=== PATIENT | female | born 1985 | race Caucasian/White ===

== ENCOUNTER → 2017-12-01 19:44 | Outpatient (CLI) | payer OTHER, SELFPAY ==
[2017-12-05 15:45] LABS: HPV APTIMA, High Risk Negative (Negative)
== END ==
PROVIDERS: Visit Provider Nurse Practitioner Women's Health
DX: Z12.4 Encounter for screening for malignant neoplasm of cervix (principal)
CPT/HCPCS: 88175; G0145

== ENCOUNTER → 2017-12-02 07:35 | Outpatient (CLI) | payer OTHER, SELFPAY ==
[2017-12-02 09:36] LABS: Cholesterol 151 mg/dL (200); Glucose 72 mg/dL (74-106); High Density Lipoprotein 57 mg/dL; Triglycerides 85 mg/dL; Very Low Density Lipoprotein 17 mg/dL (5-40)
== END ==
PROVIDERS: Visit Provider Nurse Practitioner Women's Health
DX: Z00.00 Encounter for general adult medical examination without abnormal findings (principal)
CPT/HCPCS: 36415; 80061; 82947

== ENCOUNTER 2018-10-27 13:24 | Emergency (ER) | payer OTHER, SELFPAY ==
[2018-10-27 12:53] VITALS: BMI 22.4
[2018-10-27 13:25] VITALS: BP 140/85; PULSE 117; RESP 16; TEMP 36.7; O2SAT 100; BMI 22.4
[2018-10-27 13:51] LABS: Absolute Neutrophil Count 4.6 X10^3/uL (2.0-7.7); Basophil# 0.01 X10^3/uL; Basophil% 0.2 % (0-1); Eosinophil# 0.02 X10^3/uL; Eosinophils% 0.3 % (0-5); Hematocrit 33.1 % (37-47); Hemoglobin 10.2 g/dl (12.0-15.0); Lymphocyte % 19.4 % (19-41); Mean Corp Hgb Conc 30.8 g/gl (32-36); Mean Corpuscular Hgb 22.7 pg (27.0-32.0); Mean Corpuscular Volume 73.7 fL (81-99); Mean Platelet Vol. 10.6 fl (6.2-12.0); Monocyte# 0.34 X10^3/uL; Monocyte% 5.5 % (0-10); Neutrophil # 4.63 X10^3/uL (2.7-7.7); Neutrophil % 74.6 % (47-70); Platelet Count 218 K/mm3 (150-450); RBC Distribution Width CV 15.7 % (11.6-14.6); RBC Distribution Width SD 42.1 fl (35.1-43.9); Red Blood Count 4.49 M/mm3 (4.2-5.4); White Blood Count 6.2 K/mm3 (4.4-11.0)
[2018-10-27 13:52] LABS: Differential Indicated SCAN CRITERIA MET; POSITIVE COUNT NO; POSITIVE DIFFERENTIAL NO; POSITIVE MORPHOLOGY YES
[2018-10-27 13:53] LABS: Mucous, Urine 0 SEEN /hpf (<or=2+); Red Blood Cells-Urine 0 SEEN /hpf (0-5)
[2018-10-27 13:54] LABS: Color, Urine Yellow (Yellow); Glucose, Dipstick Normal (Normal); Ketone-Dipstick Negative (Negative); Leukocyte Esterase-Dipstick Negative /ul (Negative); Nitrite-Dipstick Negative (Negative); Occult Blood-Urine Negative /ul (Negative); Protein-Dipstick Negative (Negative); Specific Gravity, Urine 1.005 (1.002-1.030); Urine Bilirubin Dipstick Negative (Negative); Urine Clarity Clear (Clear); Urine Urobilinogen Normal (Normal); Urine pH 6.5 (5.0 - 8.0)
[2018-10-27 14:00] LABS: Bacteria RARE /hpf (None Seen); Squamous Epithelial Cells - UA 0-5 SEEN /hpf (5-10); White Blood Cells 0-5 SEEN /hpf (0-5)
[2018-10-27 14:03] LABS: Anion Gap 10 (5-15); BUN 9 mg/dL (7-18); BUN/Creat Ratio 11.7 RATIO (10-20); Calcium,Total 8.7 mg/dL (8.5-10.1); Chloride 107 mmol/L (98-107); Creatinine, Serum 0.77 mg/dL (0.55-1.02); EST Glomerular Filtration Rate 93 mL/min (>60); Est Glom Filt Rate - Afr Amer 112 mL/min (>60); Estimated Creatinine Clearance 95.26 ml/min; Glucose 81 mg/dL (74-106); Potassium 3.5 mmol/L (3.5-5.1); Sodium Level 139 mmol/L (136-145)
[2018-10-27 14:33] LABS: Partial Thromboplast Time 28.1 Seconds (24.1-36.2); Prothrombin Time (Protime)PT. 13.3 SECONDS (11.7-14.9)
[2018-10-27 14:34] LABS: AST(SGOT) 16 U/L (15-37); Alanine Aminotransfer ALT/SGPT 12 U/L (13-56); Albumin, Serum 3.7 g/dL (3.2-5.0); Alkaline Phosphatase 52 U/L (45-117); Bilirubin, Direct 0.11 mg/dL (0.00-0.30); Globulin 4.5 g/dL (2.2-4.2); Protein, Total 8.2 g/dL (6.4-8.2)
[2018-10-27 14:36] LABS: Pregnancy, Serum, hCG Quali. NEGATIVE Negative (0-9 Nonpreg)
--- NOTE | 2018-10-27 15:45 | ED.DEP ---
ED Disposition - Plan for ED Patient: Chief Complaint: Abd Pain Instructions: ED Bleed UGI Stable Prescriptions: Famotidine [Pepcid] 20 mg PO BID #28 tab Referrals: Gautam Mckeon MD [STAFF PHYSICIAN] -
--- NOTE | 2018-10-27 15:46 | ED.DCSUM_ITS ---
- ER Visit Summary Date of Service: 10/27/18 Chief Complaint: Pain History of Present Illness: The patient is a 33 F with epigastric pain since yesterday evening. The patient has a burning sensation in her upper abdomen. Associated with nausea and black stool. No history of this, but she does have a history of GERD. Physical Examination: Afebrile and vital signs unremarkable. Patient is alert and oriented. No acute distress. Heart is slightly tachycardic but otherwise regular. Lungs clear. Abdomen soft and nontender. Skin is normal in color. Test Results: Hemoglobin 10.2. Labs otherwise unremarkable. Coags normal. test negative. Emergency Department Course and Treatment: Patient alert and oriented. No acute distress. Vitals unremarkable. Exam unremarkable. Workup shows anemia but is not emergent. Patient was discussed with Dr. Mckeon. He will follow-up with her as an outpatient. She was started on Pepcid. She was advised to return if she has new or worsening issues or worsening bleeding. Treatment Plan: Above Disposition: Discharge Impression: 1. Epigastric pain 2. Melena This note was generated with [employer] dictation software. It may contain incorrect words, spelling, and punctuation that were not noted in review of the chart prior to signing ED Disposition - Plan for ED Patient: Chief Complaint: Abd Pain Referrals: Michaelle Julien NP-C [Primary Care Provider] -
--- OUTSIDE RECORDS SUMMARY | 2018-12-29 20:00 | XMS RPT_ITS ---
:1985 Author Organization OHIP Support Name Relationship Address Phone ANJANA CADET Unavailable [address] + [place] [address] [employer] Unavailable [address] + [place] [address] SPRUNGER, BRITNEY Unavailable [address] + [place] [address] [facility] [address] + [place] [address] [facility] Unavailable [address] + [place] [address] SPRUNGER, BRITNEY Unavailable [address] + [place] [address] ANJANA CADET Unavailable [address] + [place] [address] [facility] Unavailable [address] + [place] [address] SPRUNGER, BRITNEY Unavailable [address] + [place] [address] ANJANA CADET Unavailable [address] + [place] [address] [facility] Unavailable [address] + [place] [address] SPRUNGER, BRITNEY Unavailable [address] + [place] [address] ANJANA CADET Unavailable [address] + [place] [address] [facility] Unavailable [address] + [place] [address] SPRUNGER, BRITNEY Unavailable [address] + [place] [address] [facility] Unavailable [address] + [place] [address] Care Team Providers Name Role Phone Tawanda Plata Attending Unavailable Primay Care Physicia, No Referring Unavailable Paula, Gautam Attending Unavailable Anaya, Michaelle Primary Care Unavailable [place], Gautam Attending Unavailable Paula, Gautam Referring Unavailable Anaya, Michaelle Attending Unavailable [place], Michaelle Attending Unavailable [place], Michaelle Referring Unavailable [place], Michaelle Attending Unavailable [place], Michaelle Referring Unavailable Primay Care Physicia, No Primary Care Unavailable PROBLEMS PROBLEMS DATE TYPE CONDITION / CODE ATTENDING STATUS SOURCE 12/02/2017 Unknown Z12.4 - Encounter [place] Michaelle Active [place] for screening for [facility] cervix / Repository Z12.4(ICD-10) 12/01/2017 Unknown Z01.419 - Encounter Michaelle Julien Active [place] for gynecological [facility] (general) (routine) Repository without abnormal findings / Z01.419(ICD-10) 12/01/2017 Unknown Z00.00 - Encounter Michaelle Julien Active [place] for general adult [facility] without abnormal Repository findings / Z00.00(ICD-10) PROCEDURES PROCEDURES No Procedure Records FoundRESULTS RESULTS EMERGENCY DEPARTMENT Observed: 10/27/2018 Status: F Source: [place] SUMMARY 4:14 PM [facility] REPOSITORY [facility] Medical Records Department [address] [facility] [place] [address] Emergency Department Summary 10/27/18 1543 MR#: [id number] Acct: [id number] Name: NICOLAS PEREZ Rep #: [id number] : 1985 33 From: Gautam Mitchell MD PCP: Michaelle Julien NP Status: REG ER - ER Visit Summary Date of Service: 10/27/18 Chief Complaint: Pain History of Present Illness: The patient is a 33 F with epigastric pain since yesterday evening. The patient has a burning sensation in her upper abdomen. Associated with nausea and black stool. No history of this, but she does have a history of GERD. Physical Examination: Afebrile and vital signs unremarkable. Patient is alert and oriented. No acute distress. Heart is slightly tachycardic but otherwise regular. Lungs clear. Abdomen soft and nontender. Skin is normal in color. Test Results: Hemoglobin 10.2. Labs otherwise unremarkable. Coags normal. test negative. Emergency Department Course and Treatment: Patient alert and oriented. No acute distress. Vitals unremarkable. Exam unremarkable. Workup shows anemia but is not emergent. Patient was discussed with Dr. Mckeon. He will follow-up with her as an outpatient. She was started on Pepcid. She was advised to return if she has new or worsening issues or worsening bleeding. Treatment Plan: Above Disposition: Discharge Impression: 1. Epigastric pain 2. Melena This note was generated with [employer] dictation software. It may contain incorrect words, spelling, and punctuation that were not noted in review of the chart prior to signing ED Disposition - Plan for ED Patient: Chief Complaint: Abd Pain Referrals: Michaelle Julien NP-C [Primary Care Provider] - What to do if you have Problems For any increased pain, shortness of breath, bleeding, nausea or vomiting, chest pain, or any unexpected problems, contact your Primary Care Provider. Call [facility] ([phone]) or report to the closest Emergency Room. Call 911 if necessary. 10/27/18 1614 <Electronically signed by Gautam Mitchell MD> Date Gautam Mitchell MD Cosigner Signature (If Indicated): Date CC: FLOUR WORKER Michaelle [place]ien DISCHARGE INSTRUCTION Observed: 10/27/2018 Status: F Source: [place] 4:14 PM [facility] REPOSITORY [facility] Medical Records Department [address] [place] [address] Discharge Instruction 10/27/18 1545 MR#: [id number] Acct: [id number] Name: NICOLAS PEREZ Rep #: [id number] : 1985 33 From: Gautam Mitchell MD PCP: Michaelle Julien NP Status: REG ER ED Disposition - Plan for ED Patient: Chief Complaint: Abd Pain Instructions: ED Bleed UGI Stable Prescriptions: Famotidine [Pepcid] 20 mg PO BID #28 tab Referrals: Gautam Mckeon MD [STAFF PHYSICIAN] - What to do if you have Problems For any increased pain, shortness of breath, bleeding, nausea or vomiting, chest pain, or any unexpected problems, contact your Primary Care Provider. Call [facility] ([phone]) or report to the closest Emergency Room. Call 911 if necessary. 10/27/18 7764 <Electronically signed by Gautam Mitchell MD> Date Gautam Mitchell MD Cosigner Signature (If Indicated): Date CC: PHILLIP Julien URINALYSIS, COMPLETE Collected: 10/27/2018 Status: F Source: [place] 1:45 PM [facility] REPOSIT[facility] Order Comment: Order Date: 10/27/18 How was Urine Obtained? MEDICAL RECORD TECHNICIAN TO SPECIFY TYPE CODE TESTS RESULT OUT OF RANGE REFERENCE UNITS LAB L400.3000 Yellow COLOR Normal Yellow LAB L400.3050 Clear Normal CLARITY Clear LAB L400.3200 Normal mg/dl Normal GLUCOSE, UR Normal LAB L400.3300 Negative mg/dL Normal BILIRUBIN URINE Negative LAB L400.3400 Negative mg/dl Normal KETONE UR Negative LAB L400.3465 1.002-1.030 Normal SP.GR. DIPSTX 1.005 LAB L400.3550 5.0 - 8.0 pH UR Normal 6.5 LAB L400.3600 Negative mg/dl PROT Normal DIPSTX Negative LAB L400.3700 Normal mg/dl Normal UROBILI Normal LAB L400.3750 Negative Normal NITRITE UR Negative LAB L400.3780 Negative /ul Normal OCCULT BLOOD-UR Negative LAB L400.3800 Negative /ul LEUK Normal ESTERASE Negative LAB L400.4050 0-5 /hpf WBC Normal 0-5 SEEN LAB L400.4100 0-5 /hpf 0 Normal RBC-UA SEEN LAB L400.4150 5-10 /hpf SQUAM Normal EPI 0-5 SEEN LAB L400.4300 None Seen /hpf Normal BACTERIA RARE LAB L400.4350 <or=2+ /hpf 0 Normal MUCUS, URINE SEEN Performed By: #### L400.0001 #### [facility] [address] [place], [address] CBC W/DIFF, AUTOMATED Collected: 10/27/2018 Status: F Source: [place] 1:40 PM [facility] REPOSIT[facility] TYPE CODE TESTS RESULT OUT OF RANGE REFERENCE UNITS LAB L100.1000 4.4-11.0 K/mm3 Normal WBC 6.2 LAB L100.1200 4.2-5.4 M/mm3 Normal RBC 4.49 LAB L100.1300 12.0-15.0 g/dl Low HGB 10.2 LAB L100.1400 37-47 % Low HCT 33.1 LAB L100.1500 81-99 fL Low MCV 73.7 LAB L100.1600 27.0-32.0 pg Low MCH 22.7 LAB L100.1700 32-36 g/gl Low MCHC 30.8 LAB L100.1810 11.6-14.6 % High RDW CV 15.7 LAB L100.1820 35.1-43.9 fl Normal RDW SD 42.1 LAB L100.1900 150-450 K/mm3 Normal PLT 218 LAB L100.2000 6.2-12.0 fl Normal MPV 10.6 LAB L100.2100 47-70 % High NEUT% 74.6 LAB L100.2200 19-41 % Normal LY% 19.4 LAB L100.2300 0-10 % Normal MONO% 5.5 LAB L100.2400 0-5 % Normal EO% 0.3 LAB L100.2500 0-1 % Normal BASO% 0.2 LAB L100.2550 0.0-0.9 % Normal IM GRAN % 0.000 Result Comment: IG% - Immature Granulocytes (promyelocytes, myelocytes and metamyelocytes) > 1% indicates that a LEFT SHIFT is Present. LAB L100.2620 2.0-7.7 X10 3/uL Normal Absolute Neut 4.6 LAB L100.2720 0.83-4.51 X10 3/ul Normal Absolute Lymph 1.20 LAB L100.4500 Normal SMEAR COMMENT COMMENT Result Comment: SLIDE SCANNED - 1+ TARGET CELLS, 1+ HYPOCHROMIA. Performed By: #### L100.0100 #### [facility] [address] [place], [place], [address] BASIC METABOLIC Collected: 10/27/2018 Status: F Source: [place] PROFILE (BMP) 1:40 PM [facility] REPOSIT[facility] TYPE CODE TESTS RESULT OUT OF RANGE REFERENCE UNITS LAB L501.0100 74-106 mg/dL Normal GLU 81 Result Comment: Please note revised GLUCOSE reference range effective 2017. LAB L501.1000 7-18 mg/dL Normal BUN 9 LAB L501.1100 0.55-1.02 mg/dL Normal CREAT,SERUM 0.77 Result Comment: The validity of the calculated GFR AND GFRAA in patients over 70 years has not been determined. Clinical correlation is essential. LAB L501.1110 >60 mL/min Normal EST GFR 93 Result Comment: Non- GFR Calc LAB L501.1115 >60 mL/min Normal EST GFR - AA 112 Result Comment: GFR Calc LAB L501.1255 ml/min Normal Estimated CRCL 95.26 LAB L501.1300 10-20 RATIO Normal BUN/CRE 11.7 LAB L501.2200 8.5-10 mg/dL Normal .1 CA 8.7 LAB L501.5300 136-14 mmol/L Normal 5 NA 139 LAB L501.5600 3.5-5. mmol/L Normal 1 K 3.5 LAB L501.5900 98-107 mmol/L Normal CL 107 LAB L501.6100 21.0-3 mmol/L Normal 2.0 CO2 22.0 LAB L501.6200 5-15 Normal GAP 10 Performed By: #### L500.2500 #### [facility] [address] [place], [place], [address] LIVER PROFILE Collected: 10/27/2018 Status: F Source: [place] 1:40 PM [facility] TYPE CODE TESTS RESULT OUT OF RANGE REFERENCE UNITS LAB L501.1500 6.4-8.2 g/dL Normal T PROT 8.2 LAB L501.1800 3.2-5.0 g/dL Normal ALB 3.7 LAB L501.1950 2.2-4.2 g/dL High GLOB 4.5 LAB L501.4100 15-37 U/L Normal AST 16 LAB L501.4305 45-117 U/L Normal ALK P 52 LAB L501.4405 13-56 U/L Low ALT 12 LAB L501.4600 0.20-1.00 mg/dL Normal T BILI 0.30 LAB L501.4700 0.00-0.30 mg/dL Normal D BILI 0.11 Performed By: #### L500.3400 #### [facility] [address] [place], [place], [id number] ,SERUM,HCG QUALI. Collected: Status: F Source: [place] 10/27/2018 1:40 PM [facility] REPOSIT[facility] TYPE CODE TESTS RESULT OUT OF REFERENCE UNITS RANGE LAB L700.7000 0-9 Nonpreg Negative Normal HCGSQUAL NEGATIVE LAB L700.6700 =>Qualitative mIU/mL Normal HCG Qual < 1 triggr Performed By: #### L700.6800 #### [facility] [address] [place], [place], [id number] PROTHROMBIN TIME W/INR Collected: 10/27/2018 Status: F Source: [place] 1:40 PM [facility] REPOSIT[facility] TYPE CODE TESTS RESULT OUT OF RANGE REFERENCE UNITS LAB L300.4150 11.7-14.9 SECONDS Normal PROTIME 13.3 LAB L300.4200 Normal INR 1.0 Performed By: #### L300.3900, L300.4310 #### [facility] [address] [place], [address] PARTIAL THROMBOPLAST Collected: 10/27/2018 Status: F Source: [place] TIME 1:40 PM [facility] REPOSIT[facility] TYPE CODE TESTS RESULT OUT OF RANGE REFERENCE UNITS LAB L300.4310 24.1-36.2 Seconds Normal PTT 28.1 Performed By: #### L300.3900, L300.4310 #### [facility] [address] [place], [place], [address] URGENT CARE VISIT Observed: 10/27/2018 Status: F Source: [place] REPORT 1:09 PM [facility] REPOSITORY [facility] [address] [place] [address] [address] [place] [address] OFFICE VISIT Date of Service: 10/27/18 MR#: [id number] Acct: [id number] Name: NICOLAS PEREZ Rep #: [id number] : 1985 Provider: Tawanda WHITE Age/Sex: 33/F Location: [facility] Status: Signed Intake Vital Signs10/27/18 Height 5 ft 5 in 10/27/18 Weight: 135 lb 10/27/18 Body Mass Index (BMI) 22.4 10/27/18 Blood Pressure 116/70 10/27/18 Respiratory Rate 12 Intake Visit Reasons: STOMACH ULCER/ACID REFLUX Chief Complaint: abd pain Jury Consultant Required: No Accompanied by: Self Is patient in pain?: Yes Allergies No Known Allergies Allergy (Unverified 10/27/18 12:54) Medications etonogestrel-ethinyl estradiol 0.12 mg -0.015 mg/24 hr vaginal ring 1 vag ring VAGINAL Q3W #3 ea 08/31/18 [Rx Confirmed 10/27/18] lansoprazole 15 mg capsule,delayed release 15 mg PO DAILY 10/27/18 [History Confirmed 10/27/18] ranitidine 150 mg tablet 150 mg PO DAILY 10/27/18 [History Confirmed 10/27/18] PFSH Medical History Bloody stool (Acute) Fatigue (Acute) History of hemorrhoids (Acute) Knee pain (Acute) Surgical History H/O knee surgery (Acute) Family History Mother Heart disease Social History Smoking Status: Never smoker alcohol intake: current details: social substance use type: does not use caffeine: Yes frequency: 5-6 times per week seatbelt use: always do you feel safe at home: Yes 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 Patient states that she has had gastric reflux for quite some time and has been treating it with Zantac or Prevacid on an as-needed basis. She does report that over the past 10 days she has had an increase in symptoms and includes noticing bright red blood in her stool approximately 10 days ago which then seemed to have resolved. However over the past 24 hours she has noticed dark tarry stools with the increase in her abdominal pain. States that last night she awoke every hour due to the sternal and upper abdominal pain. She denies fever, chills, sweats. No vomiting or diarrhea. No shortness of breath, difficulty breathing or chest pain. She denies any lightheadedness or change in mental status. No other associated symptoms or alleviating/aggravating factors. ROS Const Constitutional: No chills, fever(s), abnormal sleep pattern or fatigue Resp Respiratory: No shortness of breath or chest congestion Cardio Cardiology: No chest pain at rest, chest pain with exertion or shortness of breath Gastro GI: Positive for abdominal pain, blood in stool, Black,tarry stools and heartburn; no nausea/dyspepsia, vomiting or bloating Skin Skin: No wounds or lesions Neuro Neurology: No behavioral changes or confusion Psych Psychiatric: No behavioral changes, No confusion, No abnormal sleep pattern Endo Endocrine: No fatigue Exam Const General: cooperative, healthy appearing Resp Effort AND Inspection: normal respiratory effort Auscultation: Bilateral: Clear to Auscultation Cardio Palpation: normal PMI Rate: regular rate Rhythm: regular rhythm GI Inspection: normal to inspection Auscultation: normal bowel sounds Palpation: guarding in the RLQ, tender in the RLQ, at McBurney's point and in the epigastrum Skin General: no rashes or lesions noted Neuro General: alert, CN's II-XI intact bilaterally Psych Appearance: grossly normal Mental Status: mental status grossly normal Assessment AND Plan Problems 1. Hematochezia K92.1 Status Acute 2. RLQ abdominal pain R10.31 Status Acute Plan With recent hematochezia, tachycardia today in the office and guarding upon abdominal palpation patient has been advised to report to [facility] for further evaluation and treatment. Patient verbalized understanding and agreement with all the above and states that she will self transport directly to [facility] ED. Coding Level of Care Code Off vis,new,level 3 Diagnoses Hematochezia K92.1 RLQ abdominal pain R10.31 10/27/18 1309 <Electronically signed by Tawanda WHITE> Date Tawanda WHITE Cosigner Signature: Date (if applicable) CC: LIPID PROFILE Collected: 12/02/2017 Status: F Source: [place] 7:45 AM [facility] REPOSIT[facility] TYPE CODE TESTS RESULT OUT OF RANGE REFERENCE UNITS LAB L501.4900 200 mg/dL Normal CHOL 151 Result Comment: <200 mg/dL Desirable 200-240 mg/dL Borderline >240 mg/dL High Risk LAB L501.5000 mg/dL Normal TRIG 85 Result Comment: The drugs N-Acetylcysteine and Metamizole may falsely depress this assay. Serum Triglycerides Reference Interval Normal <150 mg/dL Borderline high 150 - 199 mg/dL High 200 - 499 mg/dL Very High > or = 500 mg/dL LAB L501.6400 mg/dL Normal HDL 57 Result Comment: The drugs N-Acetylcysteine and Metamizole may falsely depress this assay. Reference Range HDL <40 mg/dL Low HDL Cholesterol HDL >or= 60 mg/dL High HDL Cholesterol LAB L501.6500 0-130 mg/dL Normal LDL 77 LAB L501.6600 5-40 mg/dL Normal VLDL 17 Performed By: #### L500.4100, L501.0100 #### [facility] [address] [place], [place], [address] GLUCOSE Collected: 12/02/2017 Status: F Source: [place] 7:45 AM [facility] REPOSIT[facility] TYPE CODE TESTS RESULT OUT OF RANGE REFERENCE UNITS LAB L501.0100 74-106 mg/dL Low GLU 72 Result Comment: Please note revised GLUCOSE reference range effective 2017. Performed By: #### L500.4100, L501.0100 #### [facility] [address] [place], [address] PAP IG HPV HR Collected: 12/01/2017 Status: F Source: [place] 7:46 PM [facility] REPOSIT[facility] Order Comment: CYTOLOGY INFORMATION: - CLINICAL INFORMATION: - DATE LMP/MENOPAUSE: - COLLECTION VIAL: Thin Prep Vial - DISABILITY AIDE SOURCE: CERVICAL - COLLECTION TECHNIQUE: BRUSH/SPATULA Specimen Comment: [id number] Specimen Comment: No. of containers..01 ThinPrep Vial TYPE CODE TESTS RESULT OUT OF RANGE REFERENCE UNITS LAB L7400.0800 . Normal DIAGN Comment Result Comment: NEGATIVE FOR INTRAEPITHELIAL LESION AND MALIGNANCY. THIS SPECIMEN WAS RESCREENED PART OF OUR INSPECTOR MISSILE PROGRAM. LAB L7400.0900 . Normal ADEQ Comment Result Comment: Satisfactory for evaluation. Endocervical and/or squamous metaplastic cells (endocervical component) are present. LAB L7400.1400 . Normal PERFORM Comment Result Comment: Dandre Murphy, Veterinary Technician Assistant (ASCP) LAB L7400.1500 . Normal QC Comment REV Result Comment: Martha Erwin, Supervisory Veterinary Technician Assistant (ASCP) LAB L7400.2575 . Normal TEST METHOD Comment Result Comment: This liquid based ThinPrep(R) pap test was screened with the use of an image guided system. LAB L7400.2600 . Normal . COMM LAB L7400.2700 . Normal PAPSMR Comment Result Comment: The Pap smear is a screening test designed to aid in the detection of premalignant and malignant conditions of the uterine cervix. It is not a diagnostic procedure and should not be used as the sole means of detecting cervical cancer. Both false-positive and false-negative reports do occur. LAB L7400.2760 Negative Normal HPV APTIMA, Negative HR Result Comment: This test detects fourteen high-risk HPV types (16/18/31/33/35/39/45/ 51/52/56/58/59/66/68) without differentiation. Performed at: [address] [id number] Quill Stripper: Ivana Griffin MD, Phone: [phone] Performed at: =[address] [id number] Quill Stripper: Ivana Griffin MD, Phone: [phone] Performed By: #### L7400.0377 #### [facility] (refer to report for specific site) refer to report for address and phone number REHAB DIRECTOR OFFICE VISIT Observed: 12/01/2017 Status: F Source: [place] REPORT 1:31 PM [facility] [address] [place] [address] OFFICE VISIT Date of Service: 12/01/17 MR#: [id number] Acct: [id number] Name: NICOLAS PEREZ Rep #: [id number] : 1985 Provider: PHILLIP Julien Age/Sex: 32/F Location: [facility] Status: Signed Intake Vital Signs12/01/17 Height 5 ft 5 in 12/01/17 Weight: 131 lb 8 oz 12/01/17 Body Mass Index (BMI) 21.9 12/01/17 Blood Pressure 126/73 Intake Visit Reasons: ANNUAL Chief Complaint: NEW annual Jury Consultant Required: No Is patient in pain?: No Allergies No Known Allergies Allergy (Unverified 12/01/17 13:10) Medications etonogestrel-ethinyl estradiol 0.12 mg -0.015 mg/24 hr vaginal ring 1 vag ring VAGINAL Q3W 12/01/17 [History Confirmed 12/01/17] Is last menstrual period known: Yes Last Menstral Period: 11/18/17 Post menopausal: No Patient : No : No PFSH Surgical History H/O knee surgery (Acute) Family History Mother Heart disease Social History Smoking Status: Never smoker alcohol intake: current details: social substance use type: does not use caffeine: Yes frequency: 5-6 times per week seatbelt use: always do you feel safe at home: Yes 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 Nuvaring for contraception and wishes to continue. Same sexual partner since last exam. Negative STD testing April 2017 Last PAP: 2014 History of abnormal PAP: no Denies past hx STD Female Reproductive History Last Menstral Period: 11/18/17 ROS Const Constitutional: Denies fatigue, weight gain or weight loss Cardio Card: Denies chest pain Resp Resp: Denies cough or shortness of breath with activity GI GI: Denies abdominal pain, constipation, change in stools, vomiting or bloating : Reports as per HPI; denies urinary frequency, pelvic pain, urinary urgency, vaginal discharge, vaginal itching, urinary incontinence or difficulty urinating Exam Speculum Exam - Cervix: other (pap collected) Assessment AND Plan Problems 1. Encounter for gynecological examination without abnormal finding Z01.419 2. Pap smear for cervical cancer screening Z12.4 Plan Completed breast and pelvic exam Reviewed diet and exercise Pap thin prep pap with HPV Contraception Nuvaring currently, does not need refill. Discussed continuous cycling RTO 1 year, prn with problems Michaelle Julien TRANSITION LEAD Orders Orders: Coding Level of Care Code Off vis,new,prev 18-39yrs Diagnoses Encounter for gynecological examination without abnormal finding Z01.419 Gynecological examination findings: abnormal findings ABSENT Pap smear for cervical cancer screening Z12.4 12/01/17 1331 <Electronically signed by Michaelle SALEEMC> Date Michaelle Julien FLOUR WORKER-C Cosigner Signature: Date (if applicable) CC: ALLERGIES ALLERGIES DATE TYPE / CODE NAME / CODE REACTION SEVERITY SOURCE 10/29/2018 Drug No Known Unknown [facility] Allergy/4160 Allergies/F00 [facility] [address](SNOMED [id number](RXNOR Repository CT) M) ENCOUNTERS ENCOUNTERS ADMIT/DISCHARGE ACCOUNT ADMITTING ENCOUNTER LOCATION SOURCE NUMBER CLASS 10/29/2018/ [id number] Ambulatory BMSBuilding:B [place] 9 7 [place].A [facility] Repository 10/27/2018/ [id number] Emergency [place] 9 1 [facility] ing:ED Repository 10/27/2018/ [id number] Ambulatory BMSBuilding:B [place] 9 4 MS.[facility] Repository 12/02/2017 [id number] Ambulatory [place] 2 [facility] ing:LAB Repository 12/01/2017 [id number] Ambulatory [place] 1 [facility] ing:LABSPEC Repository 12/01/2017/ [id number] Ambulatory BMSBuilding:B [place] 8 5 MS.[facility] Repository PAYERS PAYERS ENCOUNTER GUARANTOR PAYER SUBSCRIBER SOURCE 10/29/2018 NICOLAS D Primary NICOLAS D [place] [id number] N Insurance:CORESOURCEP SPRUNGERDOB: [facility] Number: [id number] [address]Sdy: [id number] Repository Date:0225-65-81[address] () [address] [id number]: 10/29/2018 Secondary NOT GIVENUNK [place] Insurance:SELF PAY [facility] Number: Effective Repository Date:2018-10-29 10/27/2018 NICOLAS D Primary NICOLAS D [place] [id number] N Insurance:CORESOURCEP SPRUNGERDOB[facility] Number: [id number] [facility] Rehabilitation Center [address]Qjq: [id number] Repository Date:3055-57-03OC [address]) [address] [id number]: 10/27/2018 Secondary NOT GIVENUNK [place] Insurance:SELF PAY [facility] Number: Effective Repository Date:2018-10-27 10/27/2018 NICOLAS D Primary NICOLAS D Edmundo [id number] N Insurance:CORESOURCEP SPRUNGERDOB: [facility] Number: [id number] [facility] [address]Nhn: [id number] Repository Date:[id number] ([address]) [address]. ANTHONY FERNANDEZ [address]TA: 10/27/2018 Secondary NOT GIVENUNK [place] Insurance:SELF PAY [facility] Number: Effective Repository Date:2018-10-27 12/02/2017 NICOLAS D Primary NICOLAS D Ed[place]undo [id number] Insurance:CORESOURCEP SPRUNGERDOB: [facility] EARL jeronimo [place]: [id number] [id number] Repository [address]Wur: ([phone]) Date:5548-30-46[phone] (HP) [address]. ANTHONY FERNANDEZ [address]OM: 12/02/2017 Secondary NOT GIVENUNK [place] Insurance:SELF PAY [facility] Number: Effective Repository Date:2017-12-02 12/01/2017 NICOLAS D Primary NICOLAS D [place] [id number] Insurance:CORESOURCEP SPRUNGERDOB: [facility] EARL NURIS jeronimo Number: [id number], [place] [id number] Repository [address]Haa: ([phone]) Date:2650-44-49[phone] (HP) [address]MT. ANTHONY FERNANDEZ [address]HP: 12/01/2017 Secondary NOT GIVENUNK [place] Insurance:SELF PAY [facility] Number: Effective Repository Date:2017-12-01 12/01/2017 NICOLAS D Primary NICOLAS D [place] [id number] Insurance:CORESOURCEP SPRUNGERDOB: [facility] EARL NURIS jeronimo Number: [id number], [place] [id number] Repository [address]Hao: ([phone]) Date:5484-63-51IT [phone] (HP) [address]MT. ANTHONY FERNANDEZ [address]CD: 12/01/2017 Secondary NOT GIVENUNK [place] Insurance:SELF PAY [facility] Number: Effective Repository Date:2017-12-01
== END 2018-10-27 17:06 | disposition home or self-care (01) ==
LOC: ED 14:24
PROVIDERS: Emergency Provider Emergency Medicine; Family Provider Nurse Practitioner Women's Health; PCP Nurse Practitioner Women's Health
DX: R10.13 Epigastric pain (principal); K92.1 Melena; R11.0 Nausea; D64.9 Anemia, unspecified; K21.9 Gastro-esophageal reflux disease without esophagitis
CPT/HCPCS: 80048; 80076; 81001; 84703; 85025; 85610; 85730; 99283; A4216

== ENCOUNTER 2018-11-02 09:50 | Day surgery (SDC) | payer OTHER, SELFPAY ==
[2018-10-29 14:50] VITALS: BMI 22.4
[2018-11-02] VITALS (7 sets, daily range): BP systolic 99–127; BP diastolic 70–85; PULSE 79–109; RESP 16–18; TEMP 36.2–37.4; O2SAT 100; BMI 21.2
--- NOTE | 2018-11-02 | GASB_PTH ---
PATIENT: NICOLAS PEREZ LOC: EN U#:[id number] AGE/SX: 33/F ROOM: RE11/02/[address]: Dr. Gautam Mckeon MD : 1985 BED: DIS: 11/02/2018 SPEC #: [id number] RECD: 11/02/18 14:30 STATUS: YFN KELLEN #: [id number] CUAUHTEMOC: 11/02/18 00:[address]: Gautam Mckeon DEPT: SURGICAL PATHOLOGY RECD BY: Matthew Tsai ENTERED: 11/02/18 14:30 SP TYPE: Gastric Bx OTHR DR: No Primary Care Phys Tissues: Gastric mucous membrane Procedures: Surgery Specimen Level IV HEADER OPERATION: Colonoscopy, EGD ([facility] [place] PRE-OP DIAGNOSIS: Abdominal pain; anemia; hematochezia TISSUE SUBMITTED: Antral biopsy for H. pylori and pathology MICROSCOPIC DIAGNOSIS Gastric antrum, biopsy: Mild chronic gastritis. See comment. AM:rachel 11/03/18 COMMENT The results of immunohistochemistry for Helicobacter pylori will be reported separately ([id number]). MICROSCOPIC DESCRIPTION Slides are reviewed. GROSS DESCRIPTION Received in fixative is one container labeled with the patient's name and designated antral biopsy. The specimen consists of multiple irregular fragments of light alford soft tissue that in aggregate measure 0.5 x 0.3 x 0.1 cm. The specimen is totally submitted in one cassette. / AM:rachel 11/02/18 TC:3 CPT: 48009
[2018-11-02 10:29] LABS: Internal QC Validated? YES +Cl - CLEAR BKGD
[2018-11-02 10:30] LABS: Pregnancy, Urine Negative Negative
--- NOTE | 2018-11-02 11:00 | IMM_PTH ---
PATIENT: NICOLAS PEREZ LOC: EN U#:[id number] AGE/SX: 33/F ROOM: RE11/02/[address]: Dr. Gautam Mckeon MD : 1985 BED: DIS: 11/02/2018 SPEC #: [id number] RECD: 11/03/18 10:10 STATUS: YFN REMiles #: [id number] CUAUHTEMOC: 11/02/18 11:[address]: Gautam Mckeon DEPT: IMMUNOHISTOCHEMISTRY RECD BY: Swapna Espino ENTERED: 11/03/18 10:11 SP TYPE: IMMUNO OTHR DR: No Primary Care Phys Tissues: Stomach, NOS Procedures: H Pylori (initial) PHYSICIAN & INSTITUTION [place] [address] SPECIMEN INFORMATION: Tissue Source: Antral biopsy Clinical Info: Abdominal pain, anemia, hematochezia Specimen Number: [id number] CPT code: 77788 METHODOLOGY: Deparaffinized sections of prefer/formalin-fixed tissue or PAP/DQ stained slides are incubated with monoclonal/polyclonal antibodies/oligonucleotide probes. Localization is made via biotin free immunoperoxidase method. Appropriate controls are performed and reacted as expected. Results on target cell population are indicated in the following table: RESULTS: ANTIBODY / CLONE RESULT H Pylori (polyclonal) negative These tests were developed and their performance characteristics determined by [facility]. They may not have been cleared or approved by the U.S. Food and Drug Administration. The FDA has determined that such clearance or approval is not necessary. INTERPRETATION: Antral biopsy: Negative for Helicobacter pylori organisms. AM:rachel 11/03/18
--- NOTE | 2018-11-02 11:20 | OP.ENDO_ITS ---
Patient Name: Robina Fields Procedure Date: 11/02/2018 10:47 AM Date of : 1985 Age: 33 Procedure: Upper GI endoscopy Indications: Epigastric abdominal pain, Iron deficiency anemia, Hematochezia Providers: Gautam Mckeon MD Medicines: See the Anesthesia note for documentation of the administered medications Patient Profile: This is a 33 year old female. Refer to note in patient chart for documentation of history and physical. Complications: No immediate complications. Procedure: Pre-Anesthesia Assessment: - Prior to the procedure, a History and Physical was performed, and patient medications and allergies were reviewed. The patient's tolerance of previous anesthesia was also reviewed. The risks and benefits of the procedure and the sedation options and risks were discussed with the patient. All questions were answered, and informed consent was obtained. Prior Anticoagulants: The patient has taken no previous anticoagulant or antiplatelet agents. ASA Grade Assessment: II - A patient with mild systemic disease. After reviewing the risks and benefits, the patient was deemed in satisfactory condition to undergo the procedure. After obtaining informed consent, the endoscope was passed under direct vision. Throughout the procedure, the patient's blood pressure, pulse, and oxygen saturations were monitored continuously. The gastroscope was introduced through the mouth, and advanced to the second part of duodenum. The upper GI endoscopy was accomplished without difficulty. The patient tolerated the procedure well. Scope In: 10:55:50 AM Scope Out: 10:57:56 AM Total Procedure Duration Time 0 hours 2 minutes 6 seconds Findings: The examined esophagus was normal. The entire examined stomach was normal. Biopsies were taken with a cold forceps for Helicobacter pylori testing. The examined duodenum was normal. No biopsies or other specimens were collected for this exam. Impression: - Normal esophagus. - Normal stomach. Biopsied. - Normal examined duodenum. No specimens collected. Recommendation: - Discharge patient to home. - Resume previous diet. - Continue present medications. - Await pathology results. - Repeat upper endoscopy at appointment to be scheduled for screening purposes. - Return to my office in 2 weeks. Procedure Code(s): --- Professional --- 88558, Esophagogastroduodenoscopy, flexible, transoral; with biopsy, single or multiple Diagnosis Code(s): --- Professional --- R10.13, Epigastric pain D50.9, Iron deficiency anemia, unspecified K92.1, Melena (includes Hematochezia) CPT copyright 2017 [employer]. All rights reserved. The codes documented in this report are preliminary and upon buttonhole marker review may be revised to meet current compliance requirements. MD Gautam Kern MD 11/02/2018 11:20:06 AM This report has been signed electronically. Number of Addenda: 0 Note Initiated On: 11/02/2018 10:47 AM
--- NOTE | 2018-11-02 11:22 | OP.ENDO_ITS ---
Patient Name: Robina Fields Procedure Date: 11/02/2018 10:59 AM Date of : 1985 Age: 33 Procedure: Colonoscopy Indications: Epigastric abdominal pain, Hematochezia, Iron deficiency anemia Providers: Gautam Mckeon MD Medicines: See the Anesthesia note for documentation of the administered medications Patient Profile: This is a 33 year old female. Refer to note in patient chart for documentation of history and physical. Last Colonoscopy: none. The patient's first colonoscopy is today. Complications: No immediate complications. Procedure: Pre-Anesthesia Assessment: - Prior to the procedure, a History and Physical was performed, and patient medications and allergies were reviewed. The patient's tolerance of previous anesthesia was also reviewed. The risks and benefits of the procedure and the sedation options and risks were discussed with the patient. All questions were answered, and informed consent was obtained. Prior Anticoagulants: The patient has taken no previous anticoagulant or antiplatelet agents. ASA Grade Assessment: II - A patient with mild systemic disease. After reviewing the risks and benefits, the patient was deemed in satisfactory condition to undergo the procedure. After I obtained informed consent, the scope was passed under direct vision. Throughout the procedure, the patient's blood pressure, pulse, and oxygen saturations were monitored continuously. The colonoscope was introduced through the anus and advanced to 4 cm into the ileum. The colonoscopy was performed without difficulty. The patient tolerated the procedure well. The quality of the bowel preparation was good. Scope In: 11:00:50 AM Scope Withdrawal Time 0 hours 6 minutes 5 seconds Scope Out: 11:13:24 AM Total Procedure Duration Time 0 hours 12 minutes 34 seconds Findings: Non-bleeding internal hemorrhoids were found during retroflexion. The hemorrhoids were mild and small. The exam was otherwise without abnormality. Impression: - Non-bleeding internal hemorrhoids. - The examination was otherwise normal. - No specimens collected. Recommendation: - Discharge patient to home. - Resume previous diet. - Continue present medications. - Repeat colonoscopy at appointment to be scheduled for screening purposes. - Return to my office in 2 weeks. Procedure Code(s): --- Professional --- 01356, Colonoscopy, flexible; diagnostic, including collection of specimen(s) by brushing or washing, when performed (separate procedure) Diagnosis Code(s): --- Professional --- K64.8, Other hemorrhoids R10.13, Epigastric pain K92.1, Melena (includes Hematochezia) D50.9, Iron deficiency anemia, unspecified CPT copyright 2017 [employer]. All rights reserved. The codes documented in this report are preliminary and upon financial reporting advisor review may be revised to meet current compliance requirements. MD Gautam Kern MD 11/02/2018 11:22:26 AM This report has been signed electronically. Number of Addenda: 0 Note Initiated On: 11/02/2018 10:59 AM
== END 2018-11-02 12:17 | disposition home or self-care (01) ==
LOC: EN 09:51 → AC 09:52
PROVIDERS: Anesthesiology; Referring Provider Surgery; Visit Provider Surgery
PROC: 0DJD8ZZ Inspection of Lower Intestinal Tract, Via Natural or Artificial Opening Endoscopic (ICD-10-PCS; CPT 45378; principal; 2018-11-02 10:55)
DX: K29.50 Unspecified chronic gastritis without bleeding (principal); D50.9 Iron deficiency anemia, unspecified; K64.8 Other hemorrhoids; K21.9 Gastro-esophageal reflux disease without esophagitis; Z79.899 Other long term (current) drug therapy
CPT/HCPCS: 43239; 45378; 81025; 88305; 88342; J7120

== ENCOUNTER → 2018-11-17 08:12 | Outpatient (CLI) | payer OTHER, SELFPAY ==
[2018-11-10 08:07] VITALS: BMI 21.2
--- NOTE | 2018-11-17 08:14 | US_ITS ---
STUDY: ULTRASOUND OF THE FEMALE PELVIS - COMPLETE REASON FOR EXAM: Female, 33 years old. Left lower quadrant pain LMP: 11/04/18 TECHNIQUE: Transabdominal and Transvaginal TECHNICAL QUALITY: Adequate. COMPARISON: None. FINDINGS: The uterus is anteverted and is in a midline position. The uterus measures 6.6 x 3.4 x 2.7 cm. There is a Nabothian cyst of the cervix. The endometrium measures 6.3 mm in thickness, and is hyperechoic. There is no demonstrated endometrial mass. There is no demonstrated myometrial mass. I.U.D. - The patient does not have an I.U.D. The right ovary is visualized. The right ovary measures 3.0 x 2.5 x 2.7 cm. There is no right ovarian cyst or ovarian mass. There is no visualized right adnexal mass or complex lesion. There is normal arterial and normal venous vascularity. The left ovary is visualized. The left ovary measures 2.0 x 2.2 x 2.1 cm. There is no left ovarian cyst or ovarian mass. There is no visualized left adnexal mass or complex lesion. There is normal arterial and normal venous vascularity. There is minimal fluid in the cul-de-sac. The pre void volume of the bladder was 293 ml. US/Pelvic (Non ) IMPRESSION: Normal female pelvis. Electronically Signed: Miguel Zuniga MD at 23:14 EST , Service support ,
--- NOTE | 2018-11-17 08:14 | US_ITS ---
STUDY: ULTRASOUND OF THE FEMALE PELVIS - COMPLETE REASON FOR EXAM: Female, 33 years old. Left lower quadrant pain LMP: 11/04/18 TECHNIQUE: Transabdominal and Transvaginal TECHNICAL QUALITY: Adequate. COMPARISON: None. FINDINGS: The uterus is anteverted and is in a midline position. The uterus measures 6.6 x 3.4 x 2.7 cm. There is a Nabothian cyst of the cervix. The endometrium measures 6.3 mm in thickness, and is hyperechoic. There is no demonstrated endometrial mass. There is no demonstrated myometrial mass. I.U.D. - The patient does not have an I.U.D. The right ovary is visualized. The right ovary measures 3.0 x 2.5 x 2.7 cm. There is no right ovarian cyst or ovarian mass. There is no visualized right adnexal mass or complex lesion. There is normal arterial and normal venous vascularity. The left ovary is visualized. The left ovary measures 2.0 x 2.2 x 2.1 cm. There is no left ovarian cyst or ovarian mass. There is no visualized left adnexal mass or complex lesion. There is normal arterial and normal venous vascularity. There is minimal fluid in the cul-de-sac. The pre void volume of the bladder was 293 ml. US/Transvaginal Non- IMPRESSION: Normal female pelvis. Electronically Signed: Miguel Zuniga MD at 23:14 EST , Service support ,
== END ==
PROVIDERS: Family Provider Internal Medicine; PCP Internal Medicine; Referring Provider Nurse Practitioner Women's Health; Visit Provider Nurse Practitioner Women's Health
DX: R10.2 Pelvic and perineal pain (principal)
CPT/HCPCS: 76830; 76856; 93976

== ENCOUNTER → 2018-11-27 07:20 | Outpatient (CLI) | payer OTHER, SELFPAY ==
[2018-11-26 15:12] VITALS: BMI 21.4
[2018-11-27 08:58] LABS: Cholesterol 164 mg/dL (200); Ferritin 3 ng/mL (8-252); High Density Lipoprotein 65 mg/dL; Iron 44 ug/dL (50-170); Iron Binding Capacity,Total 421 ug/dL (250-450); Triglycerides 57 mg/dL; Very Low Density Lipoprotein 11 mg/dL (5-40)
== END ==
PROVIDERS: Family Provider Internal Medicine; PCP Internal Medicine; Referring Provider Internal Medicine; Visit Provider Internal Medicine
DX: Z02.89 Encounter for other administrative examinations (principal); D64.9 Anemia, unspecified
CPT/HCPCS: 36415; 80061; 82728; 83540; 83550

== ENCOUNTER → 2019-02-19 | Outpatient (CLI) | payer OTHER, SELFPAY ==
[2018-12-28 08:30] VITALS: BMI 21.4
[2019-02-19 09:25] LABS: Absolute Lymphocyte Count 1.93 X10^3/ul (0.83-4.51); Absolute Neutrophil Count 1.5 X10^3/uL (2.0-7.7); Basophil# 0.02 X10^3/uL; Basophil% 0.5 % (0-1); Eosinophil# 0.03 X10^3/uL; Eosinophils% 0.8 % (0-5); Hematocrit 36.9 % (37-47); Hemoglobin 11.8 g/dl (12.0-15.0); Lymphocyte # 1.93 X10^3/ul (4.0); Lymphocyte % 50.5 % (19-41); Mean Corpuscular Hgb 24.5 pg (27.0-32.0); Mean Corpuscular Volume 76.7 fL (81-99); Mean Platelet Vol. 10.9 fl (6.2-12.0); Monocyte# 0.37 X10^3/uL; Monocyte% 9.7 % (0-10); Neutrophil # 1.47 X10^3/uL (2.7-7.7); Neutrophil % 38.5 % (47-70); Platelet Count 246 K/mm3 (150-450); RBC Distribution Width SD 47.9 fl (35.1-43.9); Red Blood Count 4.81 M/mm3 (4.2-5.4); White Blood Count 3.8 K/mm3 (4.4-11.0)
[2019-02-19 09:26] LABS: POSITIVE COUNT NO; POSITIVE DIFFERENTIAL NO; POSITIVE MORPHOLOGY NO
== END | disposition home or self-care (01) ==
LOC: LAB 07:10
PROVIDERS: Family Provider Internal Medicine; PCP Internal Medicine; Referring Provider Internal Medicine; Visit Provider Internal Medicine
DX: D50.9 Iron deficiency anemia, unspecified (principal)
CPT/HCPCS: 36415; 85025

== ENCOUNTER → 2019-06-25 10:38 | Outpatient (CLI) | payer OTHER, SELFPAY ==
[2019-06-25 10:13] VITALS: BMI 21.4
[2019-06-25 13:08] LABS: Erythrocyte Sedimentation Rate 11 mm/hr (0-20)
[2019-06-25 13:09] LABS: Absolute Lymphocyte Count 1.76 X10^3/uL (0.83-4.51); Absolute Neutrophil Count 1.8 X10^3/uL (2.0-7.7); Basophil# 0.04 X10^3/uL; Eosinophil# 0.02 X10^3/uL; Eosinophils% 0.5 % (0-5); Hemoglobin 11.8 g/dL (12.0-15.0); Lymphocyte # 1.76 X10^3/ul (4.0); Lymphocyte % 43.8 % (19-41); Mean Corp Hgb Conc 31.1 g/dL (32-36); Mean Corpuscular Hgb 24.8 pg (27.0-32.0); NRBC Flagged by Analyzer 0 % (0-5); Neutrophil # 1.79 X10^3/uL (2.7-7.7); Neutrophil % 44.5 % (47-70); Platelet Count 235 K/mm3 (150-450); RBC Distribution Width CV 14.6 % (11.6-14.6); RBC Distribution Width SD 42.7 fl (35.1-43.9); Red Blood Count 4.75 M/mm3 (4.2-5.4)
[2019-06-25 13:57] LABS: CRP < 2.90 mg/L (0.0-3.0)
[2019-06-29 16:59] LABS: ANTINUCLEAR ANTIBODIES DIRECT Negative (Negative)
== END ==
LOC: EPLAB 10:38 → BIMLAB 11:10
PROVIDERS: Family Provider Internal Medicine; PCP Internal Medicine; Visit Provider Internal Medicine
DX: M19.90 Unspecified osteoarthritis, unspecified site (principal); D50.9 Iron deficiency anemia, unspecified
CPT/HCPCS: 36415; 85025; 85652; 86038; 86140; 86225; 86235

== ENCOUNTER → 2021-01-08 14:28 | Outpatient (CLI) | payer OTHER, SELFPAY ==
[2021-01-08 14:07] VITALS: BMI 25.0
[2021-01-08 15:45] LABS: HIV - WCH Non-Reactive (Nonreactive); Syphilis Antibodies Non-reactive
[2021-01-10 20:07] LABS: HCV Quant. RNA PCR HCV Not Detected IU/mL (.)
[2021-01-10 20:22] LABS: HSV 1 IgG < 0.91 index (0.00-0.90); HSV 2 IgG 1.15 index (0.00-0.90)
[2021-01-11 03:07] LABS: Chlamydia By Nucleic Acid AMP Negative (Negative)
[2021-01-11 09:16] LABS: Gonococcus By Nucleic Acid AMP Negative (Negative)
[2021-01-11 21:02] LABS: HPV APTIMA, High Risk Negative (Negative)
== END ==
PROVIDERS: PCP Internal Medicine; Referring Provider Nurse Practitioner Women's Health; Visit Provider Nurse Practitioner Women's Health
DX: Z12.4 Encounter for screening for malignant neoplasm of cervix (principal); Z11.3 Encounter for screening for infections with a predominantly sexual mode of transmission
CPT/HCPCS: 36415; 86695; 86696; 86703; 86780; 87491; 87522; 87591; 87624; 88175; G0145